=== PATIENT | female | born 2000 | race Hispanic/Latino ===

== ENCOUNTER 2020-07-13 16:48 | Emergency (ER) | payer OTHER | END 2020-07-13 17:49 | disposition home or self-care (01) | LOC: ERS 16:48 | DX: S09.90XA Unspecified injury of head, initial encounter (principal); W01.198A Fall on same level from slipping, tripping and stumbling with subsequent striking against other object, initial encounter | CPT/HCPCS: 99283 ==

== ENCOUNTER 2020-07-14 15:13 | Emergency (ER) | payer SELFPAY ==
[2020-07-14] MEDS ORDERED: diphenhydrAMINE 25 MG CAP ONE (15:55)
[2020-07-14] MEDS ORDERED: Metoclopramide HCl 10 MG TAB ONE (15:56)
--- NOTE | 2020-07-14 16:37 | CT ---
CT BRAIN WITHOUT CONTRAST: Date: 07/14/2020 HISTORY: Hit head on metal object yesterday. Worsening headache with severe light sensitivity. FINDINGS: No evidence of acute infarct, hemorrhage, midline shift, or abnormal extra-axial fluid collections ar e seen. The ventricular size is normal and the basilar cisterns are patent. The bony calvarium is int act. The visualized paranasal sinuses and mastoid air cells are well aerated. IMPRESSION: No CT evidence of acute intracranial process. POS: AH
[2020-07-14] MEDS ORDERED: Ketorolac Tromethamine 30 MG/ML VIAL ONE (16:45)
== END 2020-07-14 16:57 | disposition home or self-care (01) ==
LOC: ERS 15:13
DX: R51.9 Headache, unspecified (principal)
CPT/HCPCS: 70450; 96372; J1885; Q0163